=== PATIENT | female | born 1965 | race Two or more races ===

== ENCOUNTER 2025-01-05 07:30 | Outpatient (CLI) | payer OTHER | END 2025-01-05 07:33 | disposition home or self-care (01) | LOC: NUCLEAR 07:30 | PROVIDERS: ATTEND Internal Medicine Sports Medicine | DX: C73 Malignant neoplasm of thyroid gland (principal) ==

== ENCOUNTER 2025-01-09 10:36 | Outpatient (CLI) | payer OTHER | END 2025-01-09 10:37 | disposition home or self-care (01) | LOC: NUCLEAR 10:36 | PROVIDERS: ATTEND Internal Medicine Sports Medicine | DX: C73 Malignant neoplasm of thyroid gland (principal) ==